=== PATIENT | male | born 1980 | race Caucasian/White ===

== ENCOUNTER 2019-05-09 07:01 | Emergency (ER) | payer OTHER ==
[~2019-05-09] VITALS: Ht 182.9 cm; Wt 77.1 kg
[2019-05-09] MEDS ORDERED: IBUP800 PO (08:08)
== END 2019-05-09 08:40 | disposition home or self-care (01) ==
LOC: ER 07:01
DX: S20.212A Contusion of left front wall of thorax, initial encounter (principal); Z88.0 Allergy status to penicillin; Z88.6 Allergy status to analgesic agent; V44.5XXA Car driver injured in collision with heavy transport vehicle or bus in traffic accident, initial encounter
CPT/HCPCS: 71045; 72100; 72170; 96374; 99284-25; J1885